=== PATIENT | male | born 1970 | race Caucasian/White ===

== ENCOUNTER 2025-02-13 13:58 | Outpatient (REF) | payer BC, SELFPAY ==
--- OUTSIDE RECORDS SUMMARY | 2025-02-10 14:00 | XMS_ITS | Encounter Summary ---
Author Organization [employer] Address [address] [facility] [address] [place] [address] Care Team Providers Care Software Project Lead Name Role Phone Unavailable Primary Care Provider Unavailabl e Reason for Visit * Reason Comments SALES TRAINING COORDINATOR AUD Encounter Details Date Type Department Care Team (Late st Contact Info) Description 02/10/2025 2:00 PM EDT Office Visit [facility] MED & PEDS [address] [place] [address] Michele Yang MD [address] [place] [address] Alcohol use disorder (Primary Dx); Tobacco dependence Social History Tobacco Use Types Packs/Day Years Used Date Smoking Tobacco: Every Day Cigarettes Smokeless Tobacco: Current Alcohol Use Standard Drinks/Week Comments Yes 0 (1 standard drink = 0.6 oz pur e alcohol) Sex and Gender Information Value Date Recorded Sex Assigned at Male 03/28/2022 10:38 AM EDT Legal Sex Male 10:38 AM EDT Gender Identity Male 03/28/2022 10:38 AM EDT Sexual Orientation Straight 03/28/2022 10 :38 AM EDT documented as of this encounter Last Filed Vital Signs Vital Sign Reading Time Taken Comments Blood Pressure 156/97 02/10/2025 2:41 PM EDT Pulse 72 02/10/2025 2:41 PM EDT Temperature - - Respiratory Rate 12 02/10/2025 2:41 PM EDT Oxygen Saturation - - Inhaled Oxygen Concentration - - Weight 83.9 kg (185 lb) 02/10/2025 2:41 PM EDT Height 188 cm (6' 2 ) 02/10/2025 2:41 PM EDT Body Mass Index 23.75 02/10/2025 2:41 PM EDT documented in this encounter Progress Notes * Michele Yang MD - 02/10/2025 2:00 PM EDT PHYSICIAN AUD INTAKE 02/10/2025 UTOX: NEG FOR ALL SUBSTANCES AUD DSM-5 Score: 2 (mild) Subjective History was provided by the patient and partner (Yovana). A portion of the visit was done alone with patient. Don Whitfield is a 54 y.o. male who presents for evaluation of alcohol and tobacco use disorder. Interested in MAT for his AUD. Previously followed at [facility] primary care practice in [place]. States his last PCP visit was 3 years ago. Underlying HTN on Lisinopril (previous practice kept refilling his medication). This is his first time seeking care for AUD. Never had inpatient detox or residential rehab. Never tried to quit at home. He was at a CD physical 3 weeks ago and found to have hematuria and proteinuria on POC UA. He decided it's time to improve his health. Has been doing commercial driving and operating machinery for 30 years. Never worked under the influence of alcohol. Never had DUI. No pending legal issues. When he has to travel for work for extended time, he can stay off alcohol (up to 2 weeks). Recently went on a vacation with his partner. Admits to drinking a lot during this trip. [place] he did not really enjoy his vacation, thus wants to change things. First drink was at age 16; increased alcohol use at age 39 (in a setting of tumultuous relationshipwith his ex-partner). Current partner is very supportive. Typically drinks about 1 pint of bourbon daily. No difficulty waking up the next morning. States it has helped him fall asleep. He feels he gets REM sleep with continuous sleep and vivid dreams. Drinking water and eating foods with his alcohol consumption (mostly at home after dinner). Denies any other substance use (denies heroin, cocaine, THC, or other drugs). Currently smokes cigarettes 1.5 PPD. Previously tried Nicotine gums, but not successful due to dental issues. Interested in patches. Currently lives with his partner and daughter (16). Denies any other concerns at this time. Has an upcoming new PCP appointment at [facility] on 02/13/2025. Objective Vitals: 02/10/25 1441 BP: (!) 156/97 BP Location: Left arm Patient Position: Sitting BP Cuff Size: Adult Pulse: 72 Resp: 12 Weight: 185 lb (83.9 kg) Height: 6' 2 (1.88 m) Physical Exam Constitutional: General: He is not in acute distress. Appearance: Normal appearance. He is not ill-appearing, toxic-appearing or diaphoretic. HENT: Right Ear: External ear normal. Left Ear: External ear normal. Eyes: Extraocular Movements: Extraocular movements intact. Conjunctiva/sclera: Conjunctivae normal. Comments: Anicteric Pulmonary: Effort: Pulmonary effort is normal. Abdominal: General: Abdomen is flat. There is no distension. Musculoskeletal: Cervical back: Neck supple. Skin: General: Skin is warm and dry. Coloration: Skin is not jaundiced. Neurological: General: No focal deficit present. Mental Status: He is alert and oriented to person, place, and time. Psychiatric: Mood and Affect: Mood normal. Behavior: Behavior normal. Office Visit on 02/10/2025 Component Date Value Ref Range Status THC 02/10/2025 Negative Negative Final Cocaine Screen, Urine 02/10/2025 Negative Negative Final Opiate Screen, Urine 02/10/2025 Negative Negative Final Methamphetamine Screen Urine 02/10/2025 Negative Negative Final Amphetamine Screen, Urine 02/10/2025 Negative Negative Final Benzodiazepines Screen, Urine 02/10/2025 Negative Negative Final Barbiturate Screen, Urine 02/10/2025 Negative Negative Final Methadone Screen, Urine 02/10/2025 Negative Negative Final Buprenophine Screen, Urine 02/10/2025 Negative Negative Final TCA, Urine 02/10/2025 Negative Negative Final MDMA Urine 02/10/2025 Negative Negative ng/mL Final Oxycodone Screen, Urine 02/10/2025 Negative Negative Final Phencyclidine (PCP), Urine 02/10/2025 Negative Negative Final Fentanyl, Urine 02/10/2025 Negative Negative Final Don was seen today for nps aud . Diagnoses and all orders for this visit: Alcohol use disorder (Primary) - naltrexone (Depade) 50 MG tablet; Take 1 tablet (50 mg) by mouth Once per day. Start at 1/2 tab (=25mg) PO daily for 4 days, then increased to 1 tab daily - Hepatic Function Panel; Future - Hepatitis C Antibody with Reflex to HCV, RNA, Quantitative, Real-Time PCR; Future - HIV-1/2 Antigen and Antibodies, Fourth Generation, with Reflexes; Future - Syphilis Screen; Future - T-SPOT??.TB; Future - CBC auto differential; Future - POCT STEPHANIE-14 Urine Drug Screen Tobacco dependence - nicotine (Nicoderm, Step 1) 21 MG/24HR patch; Place 1 patch on the skin 1 (one) time each day at the same time. Patient presents for an AUD Intake Motivated to stop/decrease alcohol use for a longer term Discussed various pharmacologic and behavioral treatment options Informed about group meetings First time seeking care for AUD Interested in trying PO Naltrexone UTOX today negative for all substances Also interested in Nicotine substitute (patches) for tobacco use Encouraged cessation Potential adverse effects of the medications reviewed Will check LFT, CBC, T-Spot, and STI screening Follow up in 2 weeks by Tele-Visit Encouraged services (individual therapy, group meetings, and AA support) Discussed about the risks of alcohol withdrawal in a home setting, including DT, seizure and Gradual taper of alcohol recommended Also advised to monitor BP at home (has a home machine); informed BP readings can fluctuate betweenthe active stage of drinking and withdrawal stage Has an upcoming new PCP appointment scheduled this week Indications for ER and inpatient detox reviewed Advised to contact the clinic with any worsening symptoms documented in this encounter Plan of Treatment Upcoming Encounters Date Type Department Care Team (Late st Contact Info) Description 02/24/2025 3:00 PM EDT Telemedicine [facility] MED & PEDS [address] [place] [address] Michele Yang MD [address] [place] [address] Scheduled Orders Name Type Priority Associated Diagnoses Orde r Schedule Hepatic Function Panel Lab Routine Alcohol use disorder Expected: 02/10/2025 (Approximate), Expires: 02/10/2026 Hepatitis C Antibody with Reflex to HCV, RNA, Quantitative, Real-Time PCR Lab Routine Alcohol use disorder Expected: 02/10/2025 (Approximate), Expires: 02/10/2026 HIV-1/2 Antigen and Antibodies, Fourth Generation, with Reflexes Lab Routine Alcohol use disorder Expected: 02/10/2025 (Approximate), Expires: 02/10/2026 Syphilis Screen Lab Routine Alcohol use disorder Expected: 02/10/2025 (Approximate), Expires: 02/10/2026 T-SPOT .TB Lab Routine Alcohol use disorder Expected: 02/10/2025 (Approximate), Expires: 02/10/2026 CBC auto differential Lab Routine Alcohol use disorder Expected: 02/10/2025 (Approximate), Expires: 02/10/2026 documented as of this encounter Procedures Procedure Name Priority Date/Time Associated Diagnosis Comments POCT STEPHANIE-14 URINE DRUG SCREEN Routine 02/10/2025 2:39 PM EDT Alcohol use disorder documented in this encounter Results * POCT STEPHANIE-14 Urine Drug Screen (02/10/2025 2:39 PM EDT) THC Negative Negative Cocaine Screen, Urine Negative Negative Opiate Screen, Urine Negative Negative Methamphetamine Screen Urine Negative Negative Amphetamine Screen, Urine Negative Negative Benzodiazepines Screen, Urine Negative Negative Barbiturate Screen, Urine Negative Negative Methadone Screen, Urine Negative Negative Buprenophine Screen, Urine Negative Negative TCA, Urine Negative Negative MDMA Urine Negative Negative ng/mL Oxycodone Screen, Urine Negative Negative Phencyclidine (PCP), Urine Negative Negative Fentanyl, Urine Negative Negative Urine Urine specimen obtained by clean catch procedure / Unknown 02/10/2025 2:39 PM EDT Michele Yang MD POINT OF CARE TEST ENTER/EDIT OR DERABLES Final Result documented in this encounter Visit Diagnoses Diagnosis Alcohol use disorder- Primary Tobacco dependence Tobacco use disorder documented in this encounter
--- OUTSIDE RECORDS SUMMARY | 2025-02-10 15:00 | XMS_ITS | Encounter Summary ---
Author Organization [employer] Address [address] [facility] 7 [place] [address] Care Team Providers Care Life Underwriter Name Role Phone Unavailable Primary Care Provider Unavailabl e Reason for Visit * Reason Comments Dentures Impressions Brittany TRAN Encounter Details Date Type Department Care Team ([facility] st Contact Info) Description 02/10/2025 3:00 PM EDT Office Visit [facility] ADULT DENTAL [address] [place] [address] Kwasi Hi DMD [address] [place] [address] Partial edentulism, unspecified edentulism class (Primary Dx) Social History Tobacco Use Types Packs/Day Years [...] AM EDT documented as of this encounter Progress Notes * Kwasi Hi DMD - 02/10/2025 3:00 PM EDT Patient ID: Don Whitfield is a 54 y.o. male. Time Out: Timeout Date: 02/10/25, Timeout Time: 1511 Location: [facility] Tooth: Maxilla and Mandible Procedure: Dentures Verified the above with patient, service center assistant, and provider. Confirmed via patient's chart, intraorally and by radiographs. Primary Care Md: not applicable Chief Complaint Patient presents with Dentures Impressions Brittany TRAN Medical Hx: Vitals: There were no vitals taken for this visit. Medications, Med Hx reviewed with patient and updated in chart. Consent Obtained: The risks, benefits, indications, potential complications, and alternatives were explained to the patient and informed consent was obtained with good understanding. Treatment Provided: Dental procedures in this visit [id number] - DENTURE IMPRESSION (Completed) Service provider: Kwasi Hi DMD Billing provider: Kwasi Hi DMD Note delayed healing on #9 extraction site - pt states he has been smoking. Reviewed connection between smoking and gingival health. Also note moderate plaque accumulation at gingival margins Irrigated socket with peridex and instructed pt to keep area clean Area has healed enough to proceed with impressions today Impression taken with Alginate of Maxilla and Mandible Case sent to lab to fabricate record base and wax rims. Lab used: [facility] Lab Due Date: 02/18 Patient discharged alert, oriented, and in stable condition. NV: Bite reg Mental Health Nurse Practitioner: Brittany Santamaria Dentist: Kwasi Hi DMD documented in this encounter Miscellaneous Notes * Addendum Note - Kwasi Hi DMD - 02/10/2025 3:00 PM EDTAddended by: KWASI HI on: 02/11/2025 04:34 PM Modules accepted: Orders documented in this encounter Plan of Treatment Upcoming Encounters Date Type Department Care Team (Late st Contact Info) Description 02/24/2025 3:00 PM EDT Telemedicine [facility] MED & PEDS [address] [place] [address] Michele Yang MD [address] [place] [address] [phone] Scheduled Orders Name Type Priority Associated Diagnoses Orde r Schedule DENTAL LAB DENTURES AND PARTIALS Dental Routine Ordered: 025 documented as of this encounter Procedures Procedure Name Priority Date/Time Associated Diagnosis Comments DENTURE IMPRESSION Routine 02/10/2025 3:00 PM EDT Partial edentulism, unspecified edentulism class documented in this encounter Visit Diagnoses Diagnosis Partial edentulism, unspecified edentulism class- Primary documented in this encounter
--- OUTSIDE RECORDS SUMMARY | 2025-02-13 13:00 | XMS_ITS | Encounter Summary ---
Author Organization [employer] Address [address] [place] [address] 7 [place] [address] Care Team Providers Care Structural Steel Painter Name Role Phone Unavailable Primary Care Provider Unavailabl e Reason for Referral * Consultation (Routine) - Authorized Specialty Diagnoses / Procedures Referred By Vy malik Referred To Contact Optometry Diagnoses Adult wellness visit Any Diego FNP [address] [place] [address] Phone: tel: fax: Referral ID Status Reason Start Date Expiration Date Visits Requested Visits Authorized [id number] Authorized Specialty Services Required 02/13/2025 02/13/2026 1 1 * Consultation (Routine) - Pending Review Specialty Diagnoses / Procedures Referred By Vy malik Referred To Contact Gastroenterology Diagnoses Adult wellness visit Any Diego FNP [address] [place] [address] Phone: tel: fax: Referral ID Status Reason Start Date Expiration Date Visits Requested Visits Authorized [id number] Pending Review Specialty Services Required 02/13/2025 02/13/2026 1 1 * Consultation (Routine) - Pending Review Specialty Diagnoses / Procedures Referred By Vy malik Referred To Contact Nephrology Diagnoses Adult wellness visit Any Diego FNP [address] [place] [address] Phone: tel: fax: Referral ID Status Reason Start Date Expiration Date Visits Requested Visits Authorized [id number] Pending Review Specialty Services Required 02/13/2025 02/13/2026 1 1 Encounter Details Date Type Department Care Team (Late st Contact Info) Description 02/13/2025 1:00 PM EDT Office Visit [facility] MED[facility] [address] [place] [address] Any Diego FNP [address] [place] [address] Adult wellness visit (Primary Dx); Encounter for immunization Social History Tobacco Use Types Packs/Day Years Used Date Smoking Tobacco: Every Day Cigarettes Passive Smoke Exposure: Current Smokeless Tobacco: Current Tobacco Cessation:Ready to Q uit: Not Asked; Counseling Given: Not Answered Alcohol Use Standard Drinks/Week Comments Yes 0 (1 standard drink = 0.6 oz pur e alcohol) [place] 1 pint daily Alcohol Answer Date Recorded How often do you have a drink containing alcohol ? 4 02/13/2025 How many drinks containing a lcohol do you have on a typical day when you are drinking? 3 02/13/2025 How often do you have six or more drinks on one occasion? 4 02/13/2025 Depression Answer Date Recorded Patient Health Questionnaire-9 Score 0 02/13/2025 Patient Health Questionnaire-9 Score 0 02/13/2025 Last PHQ-9: Questionnaire Data Not on file 0 02/13/2025 Housing Stability Answer Date Recorded What is your housing situation today? I have harry manzo 02/13/[address] you li ve. Do you have problems with any of the following? None of the above 02/13/2025 Food Insecurity Answer Date Recorded Within the past 12 months, y ou worried that your food would run out before you got money to buy more: Never True 02/13/2025 Within the past 12 months,th e food you bought just didn't last and you didn't have enough money to get more: Never True Transportation Answer Date Recorded In the past 12 months, has l ack of transportation kept you from medical appts, meetings, work or from getting things needed for daily living? No 02/13/2025 Utilities Answer Date Recorded In the past 12 months, has t he electric, gas, oil or water company threatened to shut off services in your home? No 02/13/2025 Depression Answer Date Recorded Patient Health Questionnaire-2 Score 0 02/13/2025 Internet Access Answer Date Recorded Internet Access Q1 Yes 02/13/2025 Internet Access Q2 Not on file 02/13/2025 Sex and Gender Information Value Date Recorded Sex Assigned at Male 03/28/2022 10:38 AM EDT Legal Sex Male 10:38 AM EDT Gender Identity Male 03/28/2022 10:38 AM EDT Sexual Orientation Straight 03/28/2022 10 :38 AM EDT documented as of this encounter Last Filed Vital Signs Vital Sign Reading Time Taken Comments Blood Pressure 148/94 02/13/2025 1:03 PM EDT Pulse 85 02/13/2025 1:03 PM EDT Temperature 36.8 C (98.3 F) 02/13/2025 1:03 PM EDT Respiratory Rate 14 02/13/2025 1:03 PM EDT Oxygen Saturation 98% 02/13/2025 1:03 PM EDT Inhaled Oxygen Concentration - - Weight 79.4 kg (175 lb 2 oz) 02/13/2025 1:03 PM EDT Height 185.5 cm (6' 1.03 ) 02/13/2025 1:03 PM ED T Body Mass Index 23.09 02/13/2025 1:03 PM EDT documented in this encounter Functional Status * Over the past 2 weeks, how often have you been bothered by any of the following problems? Question Answer Date of Assessment Author Patient Health Questionnaire -2 Score 0 02/13/2025 1:06 PM EDT Ericka Nguyen MA * Little interest or pleasure in doing things Answer Date of Assessment Author Not at all 02/13/2025 1:06 PM EDT Ericka Graves MA * Feeling down, depressed, or hopeless Answer Date of Assessment Author Not at all 02/13/2025 1:06 PM EDT Ericka Graves MA * Trouble falling or staying asleep, or sleeping too much Answer Date of Assessment Author Not at all 02/13/2025 1:06 PM EDT Ericka Graves MA * Feeling tired or having little energy Answer Date of Assessment Author Not at all 02/13/2025 1:06 PM EDT Ericka Graves MA * Poor appetite or overeating Answer Date of Assessment Author Not at all 02/13/2025 1:06 PM EDT Ericka Graves MA * Feeling bad about yourself - or that you are a failure or have let yourself or your family down Answer Date of Assessment Author Not at all 02/13/2025 1:06 PM EDT Ericka Graves MA * Trouble concentrating on things, such as reading the newspaper or watching television Answer Date of Assessment Author Not at all 02/13/2025 1:06 PM EDT Ericka Graves MA * Moving or speaking so slowly that other people could have noticed? Or the opposite - being so fidgety or restless that you have been moving around a lot more than usual. Answer Date of Assessment Author Not at all 02/13/2025 1:06 PM EDT Ericka Graves MA * Thoughts that you would be better off or hurting yourself in some way Answer Date of Assessment Author Not at all 02/13/2025 1:06 PM EDT Ericka Graves MA * Patient Health Questionnaire-9 Score Answer Date of Assessment Author 0 02/13/2025 1:06 PM EDT Ericka Graves MA * Over the last 2 weeks, how often have you been bothered by any of the following problems? Question Answer Date of Assessment Author Feeling nervous, anxious, or on edge 1 02/13/2025 1:06 PM EDT Ericka Nguyen MA Not being able to stop or control worrying 0 02/13/2025 1:06 PM EDT Ericka Nguyen MA Worrying too much about different things 0 02/13/2025 1:06 PM EDT Ericka Nguyen MA Trouble relaxing 0 02/13/2025 1:06 PM EDT R eyes Ericka Hudson MA Being so restless that it is hard to sit still 0 02/13/2025 1:06 PM EDT Ericka Nguyen MA Becoming easily annoyed or irritable 0 02/13/2025 1:06 PM EDT Ericka Nguyen MA Feeling afraid as if somethi ng awful might happen 1 02/13/2025 1:06 PM EDT Ericka Nguyen MA MISTI-7 Total Score 2 02/13/2025 1:06 PM EDT Ericka Nguyen MA documented as of this encounter Plan of Treatment Upcoming Encounters Date Type Department Care Team (Late st Contact Info) Description 02/24/2025 3:00 PM EDT Telemedicine [facility] MED & PEDS [address] [place] [address] Michele Yang MD [address] [place] [address] Scheduled Orders Name Type Priority Associated Diagnoses Orde r Schedule Comprehensive Metabolic Panel Lab Routine Adult wellness visit Expected: 02/13/2025 (Approximate), Expires: 02/12/2026 Hepatitis B Core Antibody, Total Lab Routine Adult wellness visit Expected: 02/13/2025 (Approximate), Expires: 02/12/2026 TSH Lab Routine Adult wellness visit Expected: 02/13/2025 (Approximate), Expires: 02/12/2026 Hepatitis B Surface Antibody, Qualitative Lab Routine Adult wellness visit Expected: 02/13/2025 (Approximate), Expires: 02/12/2026 Hepatitis B surface antigen, EIA Lab Routine Adult wellness visit Expected: 02/13/2025 (Approximate), Expires: 02/12/2026 Hepatitis C Antibody with Reflex to HCV, RNA, Quantitative, Real-Time PCR Lab Routine Adult wellness visit Expected: 02/13/2025, Expires: 02/12/2026 CBC auto differential Lab Routine Adult wellness visit Expected: 02/13/2025 (Approximate), Expires: 02/12/2026 HIV-1/2 Antigen and Antibodies, Fourth Generation, with Reflexes Lab Routine Adult wellness visit Expected: 02/13/2025 (Approximate), Expires: 02/12/2026 Lipid Panel, Standard Lab Routine Adult wellness visit Expected: 02/13/2025 (Approximate), Expires: 02/12/2026 Vitamin D, 25-Hydroxy, Total, Immunoassay Lab Routine Adult wellness visit Expected: 02/13/2025 (Approximate), Expires: 02/12/2026 Hemoglobin A1c Lab Routine Adult wellness visit Expected: 02/13/2025 (Approximate), Expires: 02/12/2026 Chlamydia/N. Gonorrhoeae, PCR, Urine Lab Routine Adult wellness visit Ordered: 02/13/2025 Urine Culture Routine Microbiology Routine Adult wellness visit Ordered: 02/13/2025 PSA,Total Lab Routine Adult wellness visit Expected: 02/13/2025, Expires: 02/13/2026 Scheduled Referrals Name Type Priority Associated Diagnoses Order Schedule Referral to Nephrology Outpatient Referral Routine Adult wellness visit Expected: 02/13/2025 (Approximate), Expires: 02/12/2026 Referral to Gastroenterology Outpatient Referral Routine Adult wellness visit Expected: 02/13/2025 (Approximate), Expires: 02/12/2026 Referral to Optometry, Internal Outpatient Referral Routine Adult wellness visit Expected: 02/13/2025 (Approximate), Expires: 02/12/2026 documented as of this encounter Procedures Procedure Name Priority Date/Time Associated Diagnosis Comments POCT URINALYSIS DIPSTICK Routine 02/13/2025 1:56 PM EDT Adult wellness visit documented in this encounter Results * POCT Urinalysis (02/13/2025 1:56 PM EDT) Color, UA Dark Lucina Clarity, UA Turbid Glucose, UA Negative Bilirubin, UA Trace Comment:Small Ketones, UA Negative Spec Grav, UA 1.030 Blood, UA Negative Negative, None Detected pH, UA 6.0 Protein, UA Trace Comment:30 mg/dL Urobilinogen, UA 0.2 Leukocytes, UA Negative Negative, Rare, Trace Nitrite, UA Negative Negative, None Detected Appearance, UA Turbid QC Media Lot # [id number] Lot# Expiration Date [id number] Urine 02/13/2025 1:56 PM EDT Any Diego FLAP MAKER POINT OF CARE TEST ENTER/EDIT ORDERABLES Final Result documented in this encounter Visit Diagnoses Diagnosis Adult wellness visit- Primary Encounter for immunization documented in this encounter Additional Health Concerns Assessment Noted Time PHQ-9 Depression Total Score: 0 02/14/20 25 1:06 PM EDT documented as of this encounter
--- OUTSIDE RECORDS SUMMARY | 2025-02-13 16:00 | XMS_ITS | Encounter Summary ---
Author Organization [employer] Address [address] [facility] 7t [place] [address] Care Team Providers Care Manager Drug Safety Name Role Phone Unavailable Primary Care Provider Unavailabl e Reason for Visit * Reason Onset Date Comments Med Refill 09/11/2024 Encounter Details Date Type Department Care Team (Late st Contact Info) Description 09/11/2024 Refill [facility] [address] [place] [address] Rubens Macario DMD [address] [place] [address] Social History Tobacco Use Types Packs/Day Years [...] AM EDT documented as of this encounter Miscellaneous Notes * Telephone Encounter - Rubens Macario DMD - 09/11/2024 5:20 PM EDT Approving, but needs appt for additional refills. documented in this encounter Plan of Treatment Upcoming Encounters Date Type Department Care Team (Late st Contact Info) Description 02/24/2025 3:00 PM EDT Telemedicine [facility] MED & [facility]ED[facility] [address] [place] [address] Michele Yang MD [address] [place] [address] documented as of this encounter Visit Diagnoses Not on filedocumented in this encounter
--- OUTSIDE RECORDS SUMMARY | 2025-02-13 16:00 | XMS_ITS | Encounter Summary ---
Author Organization [email or web address] Address [address] [facility] [address] 7[address] [place] [address] Care Team Providers Care Basic Sciences Professor Name Role Phone Unavailable Primary Care Provider Unavailabl e Encounter Details Date Type Department Care Team (Latest Contact Info) Description 02/13/2025 Travel Social History Tobacco Use Types Packs/Day Years Used Date Smoking Tobacco: Every Day Cigarettes Passive Smoke Exposure: Current Smokeless Tobacco: Current Alcohol Use Standard Drinks/Week Comments Yes 0 (1 standard drink = 0.6 oz pur e alcohol) [place]orn 1 pint daily Alcohol Answer Date Recorded [...] AM EDT documented as of this encounter Functional Status * Over the [...] Trouble relaxing 0 02/13/2025 1:06 PM EDT Ericka Schmitz [place] Being so restless that it is [...] 3:00 PM EDT Telemedicine [facility] [address] [place] [address] Michele Yang MD [address] [place] [address] documented as of this encounter Visit Diagnoses Not on filedocumented in this encounter Additional Health Concerns Assessment Noted Time PHQ-9 Depression Total Score: 0 02/14/20 25 1:06 PM EDT documented as of this encounter
--- OUTSIDE RECORDS SUMMARY | 2025-02-13 16:00 | XMS_ITS | Encounter Summary ---
Author Organization [employer] Address [address] [facility] 7t [place] [address] Care Team Providers Care Chiseler Head Name Role Phone Unavailable Primary Care Provider Unavailabl e Encounter Details Date Type Department Care Team (Latest Contact Info) Description 02/10/2025 Travel Social History Tobacco Use Types Packs/Day [...] AM EDT documented as of this encounter Plan of Treatment Upcoming Encounters Date Type Department Care Team (Late st Contact Info) Description 02/24/2025 3:00 PM EDT Telemedicine [facility] [address] [place] [address] Michele Yang MD [address] [place] [address] documented as of this encounter Visit Diagnoses Not on filedocumented in this encounter
--- OUTSIDE RECORDS SUMMARY | 2025-02-13 16:01 | XMS_ITS | Clinical Summary ---
Author Organization [employer] Address [address] [facility] [address] [place] [address] Care Team Providers Care Branch Operations Coordinator Name Role Phone Unavailable Primary Care Provider Unavailabl e Allergies Active Allergy Reactions Criticality Noted Date Comments Cinnamon 01/25/2023 Penicillin G 03/17/2023 Penicillin V 01/25/2023 Medications amLODIPine (Norvasc) 10 MG tablet Take 1 tablet by mouth. 3 Active lisinopril 20 MG tablet Take 20 mg by mouth in the morning. 2 Active Sod Fluoride-Potassi um Nitrate 1.1-5 % pasteIndications :Dental caries [place] teeth for 2 minutes, morning and night. Spit, do not rinse. Do not eat or drink anything for 30 minutes following brushing. 112 g 3 3 Active Additional Information Patient not taking.Reported on 02/10/2025 acetaminophen (Tylenol) 500 MG tabletIndication s:Severe dental caries,History of tooth extraction, unspecified edentulism class Take 1 tablet (500 mg) by mouth every 6 (six) hours if needed for mild pain for up to 20 doses. 20 tablet 4 Active chlorhexidine (Peridex) 0.12 % solution Swish 15 mL morning and night for 1 minute. Spit, do not swallow. Do not eat or drink for 30 minutes following use. 473 mL 5 Active nicotine (Nicoderm, Step 1) 21 MG/24HR patchIndications :Nicotine Dependence Place 1 patch on the skin 1 (one) time each day at the same time. 28 patch 1 5 04/07/20 25 Active naltrexone (Depade) 50 MG tabletIndication s:Alcohol use disorder Take 1 tablet (50 mg) by mouth Once per day. 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 Probability of alcoholic liver disease is 100% Tobacco abuse 01/02/2023 Essential hypertension 06/15/2007 Encounters Date Type Department Care Team Description 02/13/2025 1:00 PM EDT Office Visit [facility] MED[facility] [address] [place] [address] Any Diego FNP Adult wellness visit (Primary Dx); Encounter for immunization 02/13/2025 Travel 02/10/2025 3:00 PM EDT Office Visit [facility] ADULT D[facility] [address] [place] [address] Rubens Macario DMD Partial edentulism, unspecified edentulism class (Primary Dx) 02/10/2025 2:00 PM EDT Office Visit [facility] [address] [place] [address] Michele Yang MD Alcohol use disorder (Primary Dx); Tobacco dependence 02/10/2025 Travel 02/06/2025 Patient Outreach [facility] [address] [place] [address] Any Diego FNP Pre-visit Planning (SDOH unable to reach [facility]) 02/06/2025 Travel 02/04/2025 Travel 01/16/2025 1:00 PM EDT Office Visit [facility] ADULT D[facility] [address] [place] [address] Ruebns Macario DMD Severe dental caries (Primary Dx); Dental caries; Gingivitis 01/09/2025 Travel from Last 3 Months Family History Medical History Relation Name Comments Diabetes Father Pancreatic cancer Father Breast cancer Mother Hypertension Mother Obesity Mother Relation Name Status Comments Father Mother Social History Tobacco Use Types Packs/Day Years [...] Orientation Straight 03/28/2022 10 :38 AM EDT Last Filed Vital Signs Vital Sign Reading [...] Mass Index 23.09 02/13/2025 1:03 PM EDT Plan of Treatment Upcoming Encounters Date Type Department Care Team (Late st Contact Info) Description 02/24/2025 3:00 PM EDT Telemedicine [facility] [address] [place] [address] Michele Yang MD [address] [place] [address] Health Maintenance Due Date Last Done Comments CT Colonography 1971 Colonoscopy 1971 Colorectal Cancer Screening 1971 FIT DNA/Cologuard 1971 FIT 1971 FOBT 1971 HIV Screening 1971 Lipid Panel 1971 Sigmoidoscopy 1971 Hepatitis C Screening 08/09/1989 Hepatitis A Vaccines (1 of 2 - Risk 2-dose series) 08/09/1990 Hepatitis B Vaccines (1 of 3 - 19+ 3-dose series) 08/09/1990 COVID-19 Vaccine (2024-2 6 season) 2025 05/19/2021, 10/17/2020, 09/19/2020 Influenza Vaccine (#1) 2025 Dental Oral Exam 04/18/2025 10/15/2024, 03/17/2023 Dental Prophylaxis 07/20/2025 01/16/2025 Dental X-Ray: Bitewings 10/16/2025 10/16/19 25, 03/17/2023 Disability Screening 02/06/2026 02/06/2025 Alcohol/Substance Use Screening 02/13/2026 02/13/2025 DTaP/Tdap/Td Vaccines (1 - Tdap) 02/13/2026 06/12/2005 Postponed from 06/13 (Patient Refused) Depression Screening 02/13/2026 02/13/2025, 02/13/2025 Pneumococcal Vaccine: 50+ Years (1 of 2 - PCV) 02/13/2026 Postponed from 07/27 (Patient Refused) SDOH Screening 02/13/2026 02/13/2025 Tobacco Screening 02/13/2026 02/13/2025 Zoster Vaccines (1 of 2) 02/13/2026 Pos tponed from 08/09/2021 (Patient Refused) Dental X-Ray: Full Mouth 03/18/2026 03/17/2023 RSV Patients and Patients Aged 60 years or older (1 - 1-dose 75+ series) 08/09/2046 HIB Vaccines Aged Out No longer eligi ble based on patient's age to complete this topic HPV Vaccines Aged Out No longer eligi ble based on patient's age to complete this topic IPV Vaccines Aged Out No longer eligi ble based on patient's age to complete this topic Meningococcal B Vaccine Aged Out No l onger eligible based on patient's age to complete this topic Meningococcal Vaccine Aged Out No sai james eligible based on patient's age to complete this topic RSV under 20 months Aged Out No longe r eligible based on patient's age to complete this topic Rotavirus Vaccines Aged Out No longer eligible based on patient's age to complete this topic Procedures Procedure Name Priority Date/Time Associated Diagnosis Comments POCT URINALYSIS DIPSTICK Routine 02/13/2025 1:56 PM EDT Adult wellness visit DENTURE IMPRESSION Routine 02/10/2025 3: 00 PM EDT Partial edentulism, unspecified edentulism class POCT STEPHANIE-14 URINE DRUG SCREEN Routine 02/10/2025 2:39 PM EDT Alcohol use disorder PROPHYLAXIS - ADULT Routine 01/16/2025 1 :00 PM EDT Severe dental caries Dental caries Gingivitis 11 L(V) RESIN-BASED COMPOSITE - 1 SURF, ANTERIOR Routine 01/16/2025 1:00 PM EDT Severe dental caries Dental caries Gingivitis 24 MIFL RESIN-BASED COMPOSITE - 4 OR MORE SURFACES (ANTERIOR) Routine 01/16/2025 1:00 PM EDT Severe dental caries Dental caries Gingivitis 14 MO RESIN-BASED COMPOSITE - 2 SURF, POSTERIOR Routine 01/16/2025 1:00 PM EDT Severe dental caries Dental caries Gingivitis 9 EXTRACTION, ERUPTED TOOTH OR EXPOSED ROOT (ELEVATION/FORCEPS REMOVAL) Routine 01/16/2025 1:00 PM EDT Severe dental caries Dental caries Gingivitis BITEWINGS - 4 RADIOGRAPHIC IMAGES Routine 10/15/2024 3:00 PM EDT Dental caries Partial edentulism, unspecified edentulism class Tooth fracture with loss of restorative material PERIODIC ORAL EVALUATION - ESTABLISHED PATIENT Routine 10/15/2024 3:00 PM EDT Dental caries Partial edentulism, unspecified edentulism class Tooth fracture with loss of restorative material INTRAORAL - COMPLETE SERIES OF RADIOGRAPHIC IMAGES Routine 03/17/2023 1:00 PM EDT Dental caries Periodontal disease from Last 3 Months or Most Recently Relevant to Health Maintenance Results * POCT Urinalysis (02/13/2025 1:56 PM EDT) [facility] Signature Color, UA Dark Lucina Clarity, UA Turbid Glucose, UA Negative Bilirubin, UA Trace Comment:Small Ketones, UA Negative Spec Grav, UA 1.030 Blood, UA Negative Negative, None Detected pH, UA 6.0 Protein, UA Trace Comment:30 mg/dL Urobilinogen, UA 0.2 Leukocytes, UA Negative Negative, Rare, Trace Nitrite, UA Negative Negative, None Detected Appearance, UA Turbid QC Media Lot # [id number] Lot# Expiration Date [id number] Urine 02/13/2025 1:56 PM EDT Any Diego DRESS FINISHER POINT OF CARE TEST ENTER/EDIT ORDERABLES Final Result * POCT STEPHANIE-14 Urine Drug Screen (02/10/2025 [...] CARE TEST ENTER/EDIT OR DERABLES Final Result from Last 3 Months Insurance [employer] PPO DENTAL - [facility] PPO
[2025-02-13 16:10] LABS: MANUAL DIFF FLAG NO
[2025-02-13 16:21] LABS: Hematocrit 44.3 % (42.0-52.0); Hemoglobin 16.3 g/dl (14.0-18.0); Imm Gran Abs Auto 0.06 X10*3/uL (0.00-0.03); Imm Gran Pct Auto 0.5 % (0.0-0.4); Lymphocytes Absolute Auto 3.9 X10*3/uL (1.2-4.9); Mean Corpuscular HGB Conc 36.8 g/dl (31.0-36.0); Mean Corpuscular Hemoglobin 37.2 pg (27.0-33.0); Mean Corpuscular Volume 101.1 fL (80.0-98.0); NRBC Abs Auto 0.000 X10*3/uL (0.0-0.012); NRBC Pct Auto 0.0 /100WBC (0.0-0.2); Platelet Count 183 X10*3/uL (160-400); Red Blood Count 4.38 X10*6/uL (4.60-5.80); White Blood Count 12.3 X10*3/uL (4.8-10.8)
[2025-02-13 17:17] LABS: Alanine Aminotransferase 53 U/L (0-40); Albumin Level 4.7 g/dL (3.5-5.0); Alkaline Phosphatase 96 U/L (39-117); Aspartate Amino Transferase 91 U/L (5-37); Total Protein 8.4 g/dL (6.5-8.0)
[2025-02-13 17:36] LABS: Prostate Specific Antigen 1.14 ng/mL (<0.05-4.0)
[2025-02-14 03:18] LABS: CT PCR Urine NOT DETECTED (Not Detect.); NG PCR Urine NOT DETECTED (Not Detect.)
[2025-02-14 08:41] LABS: HIV Num 1 0.05 S/CO (0.00-0.99); ~HepC Num1 0.42 S/CO (0.00-0.79); ~Hepatitis C Antibody Nonreactive (Nonreactive)
[2025-02-14 09:42] LABS: Syphilis Screen Nonreactive (Nonreactive)
[2025-02-18 03:08] LABS: TS Negative Control Passed; TS Panel A 0; TS Panel B 0; TS Positive Control Passed; TSpotTB Negative (Negative)
== END 2025-02-13 13:59 | disposition home or self-care (01) ==
LOC: HO.HHCL 13:58
PROVIDERS: PCP Nurse Practitioner Family; Referring Provider Family Medicine; Visit Provider Nurse Practitioner Family
DX: Z00.00 Encounter for general adult medical examination without abnormal findings (principal); Z12.5 Encounter for screening for malignant neoplasm of prostate; Z11.1 Encounter for screening for respiratory tuberculosis; Z11.4 Encounter for screening for human immunodeficiency virus [HIV]; Z11.8 Encounter for screening for other infectious and parasitic diseases; Z11.59 Encounter for screening for other viral diseases; F10.90 Alcohol use, unspecified, uncomplicated
CPT/HCPCS: 36415; 80076; 84153; 85025; 86481; 86780; 86803; 87389; 87491; 87591

== ENCOUNTER 2025-03-24 15:49 | Outpatient (AMB) | payer BC, SELFPAY ==
--- OUTSIDE RECORDS SUMMARY | 2025-03-21 15:00 | XMS_ITS | Encounter Summary ---
Author Organization [employer] Address [address] [facility] 7t [place] [address] Care Team Providers Care Embedded Software Development Engineer Name Role Phone Any Diego YEIMI Primary Care Provider [phone] Reason for Visit * Reason Comments AUD F/U Encounter Details Date Type Department Care Team ([facility] st Contact Info) Description 03/21/2025 3:00 PM EDT Office Visit [facility] MEDIC[facility] [address] [place] [address] Michele Yang MD [address] [place] [address] Alcohol use disorder (Primary Dx) Social History Tobacco Use Types Packs/Day Years Used Date Smoking Tobacco: Every Day Cigarettes Passive Smoke Exposure: Current Smokeless Tobacco: Current Alcohol Use Standard Drinks/Week Comments Yes 0 (1 standard drink = 0.6 oz pur e alcohol) 1 pint of bourbon daily Alcohol Answer Date Recorded How often [...] Sign Reading Time Taken Comments Blood Pressure 138/82 03/21/2025 4:00 PM EDT Pulse 90 03/21/2025 3:36 PM EDT Temperature 36.7 C (98.1 F) 03/21/2025 3:36 PM EDT Respiratory Rate 20 03/21/2025 3:36 PM EDT Oxygen Saturation - - Inhaled Oxygen Concentration - - Weight - - Height - - Body Mass Index - - documented in this encounter Progress Notes * Michele Yang MD - 03/21/2025 3:00 PM EDT TODAY AUD F/U 03/21/2025 Patient was recently started on Naltrexone PO 50mg daily 1 month ago for AUD. Contacted the clinic to discuss his erectile dysfunction issue starting Naltrexone. However, he also restarted Amlodipineand Lisinopril after being off for a long time. Previously reported no change in libido, but had difficulty sustaining his erection. Informed decreased libido is a known side effect of Naltrexone, but difficulty sustaining erection is less common.I suspected Amlodipine may have been the culprit. Now off Amlodipine for 2 weeks. Today, he states his libido issue is completely resolved. Tolerating Naltrexone and Lisinopril well. States he is consuming less amount of alcohol. Was previously drinking 1.5 - 2 shaker-ful of alcoholic beverage at night. Since starting the medication and recovery care, he has been consuming <1 shaker-ful (~16 oz bourbon). Feeling less drunk . Denies any intolerance issues. Was found to have elevated liver enzymes. Abdominal U/S scheduled in 03/2025. Previous HPI: AUD INTAKE 02/10/2025 UTOX: NEG FOR ALL SUBSTANCES AUD DSM-5 Score: 2 (mild) Subjective History was provided by the patient and partner (Yovana). A portion of the visit was done alone with patient. Don Whitfield is a 54 y.o. male who presents for evaluation of alcohol and tobacco use disorder. Interested in MAT for his AUD. Previously followed at [facility] primary care practice in [place]. States his last PCP visit was 3 years ago. Underlying HTN on Lisinopril (previous practice kept refilling his medication). This is his first time seeking care for AUD. Never had inpatient detox or residential rehab. Never tried to quit at home. He was at a [facility] physical 3 weeks ago and found to [...] to drinking a lot during this trip. [place] he did not really enjoy his vacation, [...] upcoming new PCP appointment at [facility] on 02/13/2025. Objective Vitals: 03/21/25 1536 03/21/25 1600 BP: 137/89 138/82 BP Location: Left arm Left arm Patient Position: Sitting Sitting BP Cuff Size: Adult Adult Pulse: 90 Resp: 20 Temp: 98.1 ??F (36.7 ??C) TempSrc: Oral Physical Exam Pulmonary: Effort: Pulmonary effort is normal. Neurological: Mental Status: He is alert. Psychiatric: Behavior: Behavior normal. Don was seen today for aud f/u . Diagnoses and all orders for this visit: Alcohol use disorder (Primary) Patient presents for an AUD F/U Motivated to stop/decrease alcohol use for a longer term Discussed various pharmacologic and behavioral treatment options Informed about group meetings First time seeking care for AUD Tolerating PO Naltrexone (started 1 month ago) Decreased quantity and frequency of alcohol use Erectile dysfunction symptoms have now resolved since discontinuing Amlodipine Today's BP borderline; will continue to monitor UTOX negative for all substances at the intake Nicotine substitute (patches) prescribed for tobacco use Encouraged cessation Potential adverse effects of the medications reviewed Has an upcoming Abdominal U/S scheduled for elevated LFT Encouraged services (individual therapy, group meetings, and AA support) Discussed about the risks of alcohol withdrawal in a home setting, including DT, seizure and Gradual taper of alcohol recommended Indications for ER and inpatient detox reviewed Advised to contact the clinic with any worsening symptoms Follow up in-person in 3 months documented in this encounter Plan of Treatment Upcoming Encounters Date Type Department Care Team (Late st Contact Info) Description 06/20/2025 3:00 PM EST Office Visit [facility] [address] [place] [address] Michele Yang MD [address] [place] [address] 07/22/2025 1:30 PM EST Office Visit [facility] [address] [place], [place] [id number] Jaci Childress, OD [address] [place] [address] documented as of this encounter Visit Diagnoses Diagnosis Alcohol use disorder- Primary documented in this encounter Additional Health Concerns Assessment Noted Time PHQ-9 Depression Total Score: 0 02/14/20 1:06 PM EDT documented as of this encounter Care Teams Embedded Software Development Engineer Relationship Specialty Start Date End Date Any Diego FNP [address] [place] [address] [phone] PCP - General Family Medicine 02/18/25 documented as of this encounter
[2025-03-24 15:58] VITALS: BP 120/82; PULSE 87; O2SAT 97; BMI 23.2
--- NOTE | 2025-03-24 15:58 | HO.NEPHOV_ITS ---
Vital Signs 03/24/25 15:58 Height 6 ft 1 in Weight 176 lb BMI 23.2 BP 120/82 Blood Pressure Location Lt brachial Position Sitting Pulse 87 Pulse Source Pulse Oximeter Pulse Oximetry (%) 97 Oxygen Delivery Method Room Air Intake Visit Reasons: ENP- DX Proteinuria lvm Neurology Manager Required: No Accompanied by: Spouse Allergies cinnamon Allergy (Unknown, Verified 03/24/25 16:00) Unknown penicillin G Allergy (Unknown, Verified 03/24/25 16:00) Unknown penicillin V Allergy (Unknown, Verified 03/24/25 16:00) Unknown Medication List - Last Reconciled 03/24/25 by Yovani Koroma MD lisinopril 20 mg PO DAILY naltrexone 50 mg PO DAILY HPI Comments Details: - The patient is a 54-year-old male presenting with proteinuria and hematuria. - Proteinuria and hematuria identified during routine testing. - No previous kidney issues reported. - Essential hypertension managed with Amlodipine and Lisinopril. - Alcohol use disorder with elevated liver enzymes due to high alcohol intake. - Significant weight loss of 46 pounds due to stress from personal issues. - Penicillin allergy causing hives post-infection resolution. Physical Exam General: Awake. Comfortable. HENT: Neck supple. Mucosa moist. Pulmonary: Lungs aeration equal. No rales. Cardiology: Heart S1-S2 heard. No gallop. Abdomen: Soft. Non tender. Bowel sounds normal. Neurologic: No involuntary movements. No myoclonus. Extremities: No edema. No rash. [facility] Medical History (Updated 03/24/25 @ 16:15 by Yovani Koroma MD) Proteinuria Hematuria, microscopic Alcohol use Tobacco use disorder Impaired fasting glucose Hypertriglyceridemia Essential hypertension Alcohol induced liver disorder Family History Mother Breast cancer Hypertension Obesity Father Diabetes Pancreatic cancer Review of Systems Const Denies fever(s) and Denies weight loss Card Denies chest pain Resp Denies cough and Denies hemoptysis GI Denies abdominal pain, Denies diarrhea and Denies nausea Musc Denies back pain Neuro Denies focal weakness Physical Exam Vital Signs: Last Vital Signs Pulse 87 03/24/25 15:58 BP 120/82 03/24/25 15:58 Pulse Ox 97 03/24/25 15:58 Oxygen Delivery Method Room Air 03/24/25 15:58 BMI result Body Mass Index 23.2 Results Reviewed Nephrology Results: Hgb, (14.0-18.0) 16.3 g/dl 02/13/25 WBC, (4.8-10.8) 12.3 X10*3/uL H 02/13/25 Plt Count, (160-400) 183 X10*3/uL 02/13/25 Assessment & Plan Assessment & Plan (1) Proteinuria: Code(s): R80.9 - Proteinuria, unspecified Category: Medical (2) Essential hypertension: Code(s): I10 - Essential (primary) hypertension Category: Medical Plan 1. Proteinuria - further tests to determine proteinuria type and amount. 2. Hematuria - Evaluate cause of hematuria. Urine studies ordered Await USG in MAR 3. Essential Hypertension - Continue Lisinopril. 4. Alcohol Use Disorder - Elevated Liver Enzymes - Monitor liver function tests. Orders: Orders Vitamin D 25-OH Total Today I10 - Essential (primary) hypertension, R80.9 - Proteinuria, unspecified UA and rflx microscopic Today I10 - Essential (primary) hypertension, R80.9 - Proteinuria, unspecified Total Protein Urine Random Today I10 - Essential (primary) hypertension, R80.9 - Proteinuria, unspecified Magnesium Today I10 - Essential (primary) hypertension, R80.9 - Proteinuria, unspecified Comprehensive Met. Panel Today I10 - Essential (primary) hypertension, R80.9 - Proteinuria, unspecified Creatinine Urine Today I10 - Essential (primary) hypertension, R80.9 - Proteinuria, unspecified Hepatitis B Profile Today I10 - Essential (primary) hypertension, R80.9 - Proteinuria, unspecified Coding Level of Care Code New Pt Level 4 (08558) Diagnoses Proteinuria R80.9 Essential hypertension I10
--- OUTSIDE RECORDS SUMMARY | 2025-03-24 18:51 | XMS_ITS | Encounter Summary ---
Author Organization [employer] Address [address] [facility] [address] [place] [address] Care Team Providers Care Woodyard Operator Name Role Phone Any Diego YEIMI Primary Care Provider [phone] Encounter Details Date Type Department Care Team ([facility] st Contact Info) Description 02/14/2025 Results Follow-Up [facility] [address] [place] [id number] Michele Yang MD [address] [place] [address] Hepatic Function Panel, Hepatitis C Antibody with Reflex to HCV, RNA, Quantitative, Real-Time PCR, HIV-1/2 Antigen and Antibodies, Fourth Generation, with Reflexes, Additional followed-up results: 3 Social History Tobacco Use Types Packs/Day Years Used Date Smoking Tobacco: Every Day Cigarettes Passive Smoke Exposure: Current Smokeless Tobacco: Current Alcohol Use Standard Drinks/Week Comments Yes 0 (1 standard drink = 0.6 oz pur e alcohol) Brianna 1 pint daily Alcohol Answer Date Recorded [...] your housing situation today? I have harry sing 02/13/[address] you li [...] Description 06/20/2025 3:00 PM EST Office Visit [facility] MED[facility] [address] [place] [address] Michele Yang MD [address] [place] [address] 07/22/2025 1:30 PM EST Office Visit [facility] [address] [place] [address] Jaci Childress, OD [address] [place] [address] documented as of this encounter Visit Diagnoses Not on filedocumented in this encounter Additional Health Concerns Assessment Noted Time PHQ-9 Depression Total Score: 0 02/14/20 1:06 PM EDT documented as of this encounter Care Teams Woodyard Operator Relationship Specialty Start Date End Date Any Diego FNP [address] [place] [id number] PCP - General Family Medicine 02/18/25 documented as of this encounter
--- OUTSIDE RECORDS SUMMARY | 2025-03-24 18:51 | XMS_ITS | Encounter Summary ---
Author Organization [employer] Address [address] [facility] 7t [place] [address] Care Team Providers Care Fisher Hand Line Name Role Phone Any Diego SHIPYARD LABORER Primary Care Provider [phone] Encounter Details Date Type Department Care Team (Latest Contact Info) Description 03/20/2025 Travel Social History Tobacco Use Types Packs/Day [...] Description 06/20/2025 3:00 PM EST Office Visit [facility] MEDICINE [address] [place] [address] Michele Yang MD [address] [place] [address] 07/22/2025 1:30 PM EST Office Visit [facility] [address] [place] [address] Jaci Childress, OD [address] [place] [address] documented as of this encounter Visit Diagnoses Not on filedocumented in this encounter Additional Health Concerns Assessment Noted Time PHQ-9 Depression Total Score: 0 02/14/20 1:06 PM EDT documented as of this encounter Care Teams Fisher Hand Line Relationship Specialty Start Date End Date Any Diego FNP [address] [place] [address] PCP - General Family Medicine 02/18/25 documented as of this encounter
--- OUTSIDE RECORDS SUMMARY | 2025-03-24 18:51 | XMS_ITS | Clinical Summary ---
Author Organization [employer] Address [address] [place] [address] 7t [place] [address] Care Team Providers Care Braided Band Assembler Name Role Phone Any Diego YEIMI Primary Care Provider [phone] Allergies Active Allergy Reactions Criticality Noted Date Comments Cinnamon 01/25/2023 Penicillin G 03/17/2023 Penicillin V 01/25/2023 Medications amLODIPine (Norvasc) 10 MG tablet Take 1 tablet by mouth. 3 Active lisinopril 20 MG tablet Take 20 mg by mouth in the morning. 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 Probability of alcoholic liver disease is 100% Tobacco use disorder 01/02/2023 Essential hypertension 06/15/2007 Encounters Date Type Department Care Team Description 03/21/2025 3:00 PM EDT Office Visit [facility] [address] [place] [address] Michele Yang MD Alcohol use disorder (Primary Dx) 03/21/2025 Travel 03/20/2025 Travel 03/07/2025 Telephone [facility] [address] [place] [address] Michele Yang MD 03/06/2025 Travel 02/28/[address] [address] Tamia Rinaldi LPN 02/26/2025 2:30 PM EDT Office Visit [facility] [address] [place] [address] Rubens Macario DMD Partial edentulism, unspecified edentulism class (Primary Dx) 02/24/2025 3:00 PM EDT Telemedicine [facility] [address] [place] [address] Michele Yang MD Alcohol use disorder (Primary Dx) 02/24/2025 Telephone [facility] [address] [place] [address] Michele Yang MD 02/24/2025 Travel 02/19/2025 Travel 02/17/2025 Telephone [facility] [address] [place] [address] Rubens Macario DMD 02/17/2025 Travel 02/14/2025 Telephone [facility] [address] [place] [phone] Michele Yang MD 02/14/2025 Results Follow-Up [facility] [address] [place] [phone] Michele Yang MD Hepatic Function Panel, Hepatitis C Antibody with Reflex to HCV, RNA, Quantitative, Real-Time PCR, HIV-1/2 Antigen and Antibodies, Fourth Generation, with Reflexes, Additional followed-up results: 3 02/13/2025 1:00 PM EDT Office Visit [facility] [address] [place] [phone] Any Diego FNP Adult wellness visit (Primary Dx); Essential hypertension; Alcohol use; Hematuria, microscopic; Alcohol induced liver disorder (CMS/HCC); Proteinuria, unspecified type; Tobacco use disorder; Tremor of both outstretched hands 02/13/2025 Travel 02/10/2025 3:00 PM EDT Office Visit [facility] [address] [place] [address] Rubens Macario DMD Partial edentulism, unspecified edentulism class (Primary Dx) 02/10/2025 2:00 PM EDT Office Visit [facility] [address] [place] [address] Michele Yang MD Alcohol use disorder (Primary Dx); Tobacco dependence 02/10/2025 Travel 02/06/2025 Patient Outreach [facility] [address] [place] [address] Any Diego FNP Pre-visit Planning ([facility] unable to reach [facility]) 02/06/2025 Travel 02/04/2025 Travel 01/16/2025 1:00 PM EDT Office Visit [facility] [address] [place] [address] Rubens Macario DMD Severe dental caries (Primary Dx); [...] is your housing situation today? I have harrymarzena manzo 02/13/[address] you [...] 20 03/21/2025 3:36 PM EDT Oxygen Saturation 98% 02/13/2025 1:03 [...] 3:00 PM EST Office Visit [facility] [address] [place] [address] Michele Yang MD [address] [place] [address] 07/22/2025 1:30 PM EST Office Visit [facility] [address] [place] [address] Jaci Childress, OD [address] [place] [address] Health Maintenance Due Date Last Done Comments CT Colonography 1971 Colonoscopy 1971 Colorectal Cancer Screening 1971 FIT DNA/Cologuard 1971 FIT 1971 FOBT 1971 Lipid Panel 1971 Sigmoidoscopy 1971 Hepatitis A Vaccines (1 of 2 - Risk 2-dose series) 08/09/1990 Hepatitis B Vaccines (1 of 3 - 19+ 3-dose series) 08/09/1990 COVID-19 Vaccine ( - 2024-2 6 season) 2025 05/19/2021, 10/17/2020, 09/19/2020 Influenza [...] 07/27 (Patient Refused) SDOH Screening 02/13/2026 02/13/2025 Zoster Vaccines (1 of 2) 02/13/2026 Pos tponed from 08/09/2021 (Patient Refused) Tobacco Screening 02/26/2026 02/26/2025 Dental X-Ray: Full Mouth 03/18/2026 03/17/2023 RSV Patients and Patients Aged 60 years or older (1 - 1-dose 75+ series) 08/09/2046 HIV Screening Completed 02/13/2025 Hepatitis C Screening Completed 02/13/2025 HIB Vaccines Aged Out No longer eligi [...] Procedure Name Priority Date/Time Associated Diagnosis Comments BITE REGISTRATION Routine 02/26/2025 2:3 0 PM EDT Partial edentulism, unspecified edentulism class PSA, TOTAL Routine 02/13/2025 2:07 PM EDT Adult wellness visit CBC WITH AUTO DIFFERENTIAL Routine 02/13/2025 2:07 PM EDT Alcohol use disorder T-SPOT(R).TB Routine 02/13/2025 2:07 PM EDT Alcohol use disorder SYPHILIS SCREEN Routine 02/13/2025 2:07 PM EDT Alcohol use disorder HIV 1/2 ANTIGEN/ANTIBODY, FOURTH GENERATION W/RFL Routine 02/13/2025 2:07 PM EDT Alcohol use disorder HEPATITIS C AB W/REFL TO HCV RNA, QN, PCR Routine 02/13/2025 2:07 PM EDT Alcohol use disorder HEPATIC FUNCTION PANEL Routine 02/13/2025 2:07 PM EDT Alcohol use disorder POCT URINALYSIS DIPSTICK Routine 02/13/2025 1:56 PM EDT Adult wellness visit CHLAMYDIA/TRICHOMONAS /NEISSERIA GONORRHOEAE, PCR, URINE Routine 02/13/2025 1:51 PM EDT Adult wellness visit DENTURE IMPRESSION [...] Recently Relevant to Health Maintenance Results * Syphilis Screen (02/13/2025 2:07 PM EDT) Pathologist [facility] Syphilis Screen Nonreactive Nonreactive [facility] Blood 02/13/2025 2:07 PM EDT 02/13/2025 4:46 PM EDT us Michele Yang MD LAB BLOOD ORDERABLES Final Resul t [facility] [address] [place] [phone] * T-SPOT??.TB (02/13/2025 2:07 PM EDT) Pathologist [facility] T Spot TB Negative Negative [facility] Comment:A negative test resu lt does not exclude the possibilityof exposure to or infection with Mycobacteriumtuberculosis (M. tuberculosis). Patients with recentexposure to TB infected individuals exhibiting anegative T-SPOT.TB result should be considered forretesting within 6 weeks or if other relevant clinicalsymptoms indicate. Results from T-SPOT.TB testing mustbe used in conjunction with each individual'sepidemiological history, current medical status,and results of other diagnostic evaluations.The T-SPOT.TB test is qualitative and results arereported as positive, borderline, or negative, giventhat the test controls perform as expected. In linewith the Centers for Disease Control and Prevention's2010 recommendation to report quantitative measurementsalongside the qualitative result, the laboratoryprovides spot counts for informational purposes only.The T-SPOT.TB test should not be interpreted as aquantitative test. TS PANEL A 0 [facility] TS PANEL B 0 [facility] Negative Control Passed [facility] Positive Control Passed [facility] Comment:For additional infor clevejewels, please refer tohttp://education.HealthLinkNow/faq/GMO186(This link is being provided for informational/educational purposes only.)THIS TEST WAS PERFORMED AT:[employer] [id number] [place] [phone] NGUYEN MD,PHD 02/13/2025 2:07 PM EDT 02/13/2025 4:03 PM EDT us Michele Yang MD LAB BLOOD ORDERABLES Final Resul t [facility] [address] [place] [phone] * (ABNORMAL) CBC auto differential (02/13/2025 2:07 PM EDT) White Blood Count 12.3(H) 4.8 - 10.8 X10*3/uL [facility] Red Blood Count 4.38(L) 4.60 - 5.80 X10*6/uL [facility] Hemoglobin 16.3 14.0 - 18.0 g/dl [facility] Hematocrit 44.3 42.0 - 52.0 % [facility] Mean Corpuscular Volume 101.1(H) 80.0 - 98.0 fL [facility] Mean Corpuscular Hemoglobin 37.2(H) 27.0 - 33.0 pg [facility] Mean Corpuscular HGB Conc 36.8(H) 31.0 - 36.0 g/dl [facility] Red Cell Distribution Width 13.4 11.0 - 16.0 % [facility] Platelet Count 183 160 - 400 X10*3/uL [facility] Mean Platelet Volume 10.3 9.4 - 12.4 fL [facility] Neutrophils Percent Auto 60.0 45 - 73 % [facility] Imm Gran Pct Auto 0.5(H) 0.0 - 0.4 % [facility] Lymphocytes Percent Auto 31.6 20 - 40 % [facility] Monocytes Percent Auto 6.7 2 - 11 % [facility] Eosinophils Percent Auto 0.6 0 - 4 % [facility] Basophils Percent Auto 0.6 0 - 2 % [facility] NRBC Pct Auto 0.0 0.0 - 0.2 /100WBC [facility] Neutrophils Absolute Auto 7.4 2.0 - 8.3 x10*3/uL [facility] Imm Gran Abs Auto 0.06(H) 0.00 - 0.03 X10*3/uL [facility] Lymphocytes Absolute Auto 3.9 1.2 - 4.9 X10*3/uL [facility] Monocytes Absolute Auto 0.8 0.1 - 1.2 X10*3/uL [facility] Eosinophils Absolute Auto 0.1 0.0 - 0.4 X10*3/uL [facility] Basophils Absolute Auto 0.1 0.0 - 0.2 X10*3/uL [facility] NRBC Abs Auto 0.000 0.0 - 0.012 X10*3/uL [facility] Blood Venous blood specimen / Unknown 02/13/2025 2:07 PM EDT 02/13/2025 4:03 PM EDT us Michele Yang MD LAB BLOOD ORDERABLES Final Resul t [facility] [address] [place] [phone] * Hepatitis C Antibody with Reflex to HCV, RNA, Quantitative, Real-Time PCR (02/13/2025 2:07 PM EDT) Hepatitis C Antibody Nonreactive Nonreactive [facility] Comment:Antibodies to HCV no t detected; does not exclude early acuteHCV infection. Blood Venous blood specimen / Unknown 02/13/2025 2:07 PM EDT 02/13/2025 4:46 PM EDT Michele Yang MD LAB BLOOD ORDERABLES Final Resul t Performing Organization Address [facility] Co de Phone Number [facility] [address] [place] [phone] [phone] * HIV-1/2 Antigen and Antibodies, Fourth Generation, with Reflexes (02/13/2025 2:07 PM EDT) HIV AB/AG Nonreactive Nonreactive [facility] Comment:HIV-1 p24 Ag and/or HIV-1/HIV-2 Ab not detected.A test result that is nonreactive does not exclude thepossibility of exposure to or infection with HIV-1 and/orHIV-2. Nonreactive results in this assay for individualswith prior exposure to HIV-1 and/or HIV-2 may be due toantigen and antibody levels that are below the limit ofdetection of this assay.The [employer] HIV Ag/Ab Combo assay result andsupplemental assay results should be interpreted inconjunction with the patient's clinical presentation,history and other laboratory results. If the results areinconsistent with clinical evidence, additional testing issuggested to confirm the result. Blood Venous blood specimen / Unknown 02/13/2025 2:07 PM EDT 02/13/2025 4:46 PM EDT Michele Yang MD LAB BLOOD ORDERABLES Final Resul t Performing Organization Address [facility]/ZIP Co de Phone Number [facility] [address] [place] [phone] [phone] * PSA,Total (02/13/2025 2:07 PM EDT) Prostate Specific Antigen 1.14 <0.05 - 4.0 ng/mL [facility] Comment:PSA methodology: Abb carlo Alinity i ChemiluminescentMicroparticle Immunoassay (CMIA) Blood Venous blood specimen / Unknown 02/13/2025 2:07 PM EDT 02/13/2025 4:46 PM EDT us Anykaitlin Diego AGILE SCRUM COACH LAB BLOOD ORDERABLES Final Res ult Performing Organization Address [facility] Co de Phone Number [facility] [address] [place] [address] [phone] * (ABNORMAL) Hepatic Function Panel (02/13/2025 2:07 PM EDT) Bilirubin, Total 1.1(H) 0.0 - 1.0 mg/dL [facility] Bilirubin, Direct 0.4 0.0 - 0.5 mg/dL [facility] Aspartate Amino Transferase 91(H) 5 - 37 U/L [facility] Alanine Aminotransferase 53(H) 0 - 40 U/L [facility] Total Protein 8.4(H) 6.5 - 8.0 g/dL [facility] Albumin Level 4.7 3.5 - 5.0 g/dL [facility] Alkaline Phosphatase 96 39 - 117 U/L [facility] Blood Venous blood specimen / Unknown 02/13/2025 2:07 PM EDT 02/13/2025 4:46 PM EDT us Michele Yang MD LAB BLOOD ORDERABLES Final Resul t Performing Organization Address [facility] Co de Phone Number [facility] [address] [place] [phone] * POCT Urinalysis (02/13/2025 1:56 PM EDT) [...] Media Lot # [id number] Lot# Expiration Date [id number] Urine 02/13/2025 1:56 PM EDT Any Johnathon AGILE SCRUM COACH POINT OF CARE TEST ENTER/EDIT ORDERABLES Final Result * Chlamydia/N. Gonorrhoeae, PCR, Urine (02/13/2025 1:51 PM EDT) CT PCR, Urine NOT DETECTED Not Detect. [facility] Comment:A not detected test result does not exclude the possibilityof infection because test results can be affected byimproper specimen collection, concurrent antibiotic therapy,or the number of organisms in the specimen which may bebelow the sensitivity of the test. As with many diagnostictests, results from the Xpert CT/NG assay should beinterpreted in conjunction with other laboratory andclinical data available to the clinician.The Xpert CT/NG assay should not be used for the evaluationof suspected sexual abuse or for other medico-legalindications. Additional testing is recommended in anycircumstance when false positive or false negative resultscould lead to adverse medical, social or psychologicalconsequences. NG PCR, Urine NOT DETECTED Not Detect. [facility] Comment:A not detected test result does not exclude the possibilityof infection because test results can be affected byimproper specimen collection, concurrent antibiotic therapy,or the number of organisms in the specimen which may bebelow the sensitivity of the test. As with many diagnostictests, results from the Xpert CT/NG assay should beinterpreted in conjunction with other laboratory andclinical data available to the clinician.The Xpert CT/NG assay should not be used for the evaluationof suspected sexual abuse or for other medico-legalindications. Additional testing is recommended in anycircumstance when false positive or false negative resultscould lead to adverse medical, social or psychologicalconsequences. Urine (Urine, Random) 02/13/2025 1:51 PM EDT 02/13/2025 4:52 PM EDT Any Oksheri AGILE SCRUM COACH LAB URINE ORDERABLES Final Res ult [facility] [address] [place] [phone] * POCT STEPHANIE-14 Urine Drug Screen (02/10/2025 [...] Final Result from Last 3 Months Insurance [facility] Address: [facility] [id number] JAZIEL Son [id number] Care Teams Braided Band Assembler Relationship Specialty Start Date End Date Any Diego FNP [address] [place] [phone] PCP - General Family Medicine 02/18/25
--- OUTSIDE RECORDS SUMMARY | 2025-03-24 18:51 | XMS_ITS | Encounter Summary ---
Author Organization [employer] Address [address] [place] [address] 7 [place] [address] Care Team Providers Care Rolls Baker Name Role Phone Any Diego THERAPEUTIC RECREATION ASSISTANT Primary Care Provider Reason for Visit * Reason Onset Date Comments Med Refill 09/11/2024 Encounter Details Date Type Department Care Team (Late st Contact Info) Description 09/11/2024 Refill [facility] [address] [place] [address] Rubens Macario DMD [address] [place] [address] Social History Tobacco Use Types Packs/Day Years [...] Description 06/20/2025 3:00 PM EST Office Visit [facility] [address] [place] [address] Michele Yang MD [address] [place] [address] 07/22/2025 1:30 PM EST Office Visit [facility] [address] [place], [place] [phone] Jaci Childress, OD [address] [place], [place] [phone] documented as of this encounter Visit Diagnoses Not on filedocumented in this encounter Care Teams Rolls Baker Relationship Specialty Start Date End Date Any Diego FNP [address] [place], [place] [phone] PCP - General Family Medicine 02/18/25 documented as of this encounter
--- OUTSIDE RECORDS SUMMARY | 2025-03-24 18:51 | XMS_ITS | Encounter Summary ---
Author Organization [employer] Address [address] [place] [address] Care Team Providers Care Cork Slabs Sawyer Name Role Phone Any Diego DEPUTY K 9 Primary Care Provider [phone] Encounter Details Date Type Department Care Team (Latest Contact Info) Description 03/21/2025 Travel Social History Tobacco Use Types Packs/Day [...] 3:00 PM EST Office Visit [facility] [address] [place] [address] Michele Yang MD [address] [place] [address] 07/22/2025 1:30 PM EST Office Visit [facility] [address] [place] [address] Jaci Childress, OD [address] [place] [address] documented as of this encounter Visit Diagnoses Not on filedocumented in this encounter Additional Health Concerns Assessment Noted Time PHQ-9 Depression Total Score: 0 02/14/20 1:06 PM EDT documented as of this encounter Care Teams Cork Slabs Sawyer Relationship Specialty Start Date End Date Any Diego FNP [address] [place] [address] PCP - General Family Medicine 02/18/25 documented as of this encounter
== END 2025-03-24 16:18 | disposition home or self-care (01) ==
LOC: HO.HKA 15:50
PROVIDERS: PCP Nurse Practitioner Family; Visit Provider Internal Medicine Hypertension Specialist
DX: R80.9 Proteinuria, unspecified (principal); I10 Essential (primary) hypertension
CPT/HCPCS: 99204

== ENCOUNTER 2025-04-04 13:03 | Outpatient (REF) | payer BC, SELFPAY ==
--- OUTSIDE RECORDS SUMMARY | 2025-04-04 15:14 | XMS_ITS | Encounter Summary ---
Author Organization [employer] Address [address] [place] [address] Care Team Providers Care Applications Tester Name Role Phone Any Diego YEIMI Primary Care Provider [phone] Encounter Details Date Type Department Care Team ([facility] st Contact Info) Description 02/14/2025 Results Follow-Up [facility] [address] [place] [phone] Michele Yang MD [address] [place] [address] Hepatic Function Panel, Hepatitis C Antibody with [...] Description 06/20/2025 3:00 PM EST Office Visit [facility] [address] [place] [address] Michele Yang MD [address] [place] [address] 07/22/2025 1:30 PM EST Office Visit [facility] [address] [place] [address] Jaci Childress, OD [address] [place] [address] documented as of this encounter Visit Diagnoses Not on filedocumented in this encounter Additional Health Concerns Assessment Noted Time PHQ-9 Depression Total Score: 0 02/14/20 1:06 PM EDT documented as of this encounter Care Teams Applications Tester Relationship Specialty Start Date End Date Any Diego FNP [address] [place] [phone] PCP - General Family Medicine 02/18/25 documented as of this encounter
--- OUTSIDE RECORDS SUMMARY | 2025-04-04 15:14 | XMS_ITS | Encounter Summary ---
Author Organization [employer] Address [address] [place] [address] 7[address] [place] [address] Care Team Providers Care Senior Chemical Engineer Name Role Phone Any Diego DRAWER HARDWARE WORKER Primary Care Provider [phone] Reason for Visit * Reason Onset Date Comments Med Refill 09/11/2024 Encounter Details Date Type Department Care Team (Late st Contact Info) Description 09/11/2024 Refill [facility] [address] [place] [address] Rubens Macario DMD [address] [place] [address] Social History Tobacco Use Types Packs/Day Years [...] Description 06/20/2025 3:00 PM EST Office Visit [facility] [address] [place] [address] Michele Yang MD [address] [place] [address] 07/22/2025 1:30 PM EST Office Visit [facility] [address] [place], [place] [phone] Jaci Childress, OD [address] [place], [place] [phone] documented as of this encounter Visit Diagnoses Not on filedocumented in this encounter Care Teams Senior Chemical Engineer Relationship Specialty Start Date End Date Any Diego FNP [address] [place], [place] [phone] PCP - General Family Medicine 02/18/25 documented as of this encounter
--- OUTSIDE RECORDS SUMMARY | 2025-04-04 15:15 | XMS_ITS | Clinical Summary ---
Author Organization [employer] Address [address] [place] [address] [address] [place] [address] Care Team Providers Care Timber Grader Name Role Phone Any Diego YEIMI Primary Care Provider [phone] Allergies Active Allergy Reactions Criticality Noted Date [...] Description 03/21/2025 3:00 PM EDT Office Visit [facility] [address] [place] [phone] Michele Yang MD Alcohol use disorder (Primary Dx) 03/21/2025 Travel 03/20/2025 Travel 03/07/2025 Telephone [facility] [address] [place] [phone] Michele Yang MD 03/06/2025 Travel 02/28/[address] [phone] Tamia Rinaldi LPN 02/26/2025 2:30 PM EDT Office Visit [facility] [address] [place] [address] Rubens Macario DMD Partial edentulism, unspecified edentulism class (Primary Dx) 02/24/2025 3:00 PM EDT Telemedicine [facility] [address] [place] [address] Michele Yang MD Alcohol use disorder (Primary Dx) 02/24/2025 Telephone [facility] [address] [place] [phone] Michele Yang MD 02/24/2025 Travel 02/19/2025 Travel 02/17/2025 Telephone [facility] [address] [place] [address] Rubens Macario DMD 02/17/2025 Travel 02/14/2025 Telephone [facility] [address] [place] [phone] Michele Yang MD 02/14/2025 Results Follow-Up [facility] [address] [place] [phone] Michele Yang MD Hepatic Function Panel, Hepatitis C Antibody with Reflex to HCV, RNA, Quantitative, Real-Time PCR, HIV-1/2 Antigen and Antibodies, Fourth Generation, with Reflexes, Additional followed-up results: 3 02/13/2025 1:00 PM EDT Office Visit [facility] [address] [place] [phone] Any Diego FNP Adult wellness visit (Primary Dx); Essential hypertension; Alcohol use; Hematuria, microscopic; Alcohol induced liver disorder (CMS/HCC); Proteinuria, unspecified type; Tobacco use disorder; Tremor of both outstretched hands 02/13/2025 Travel 02/10/2025 3:00 PM EDT Office Visit [facility] [address] [place] [address] Rubens Macario DMD Partial edentulism, unspecified edentulism class (Primary Dx) 02/10/2025 2:00 PM EDT Office Visit [facility] [address] [place] [address] Michele Yang MD Alcohol use disorder (Primary Dx); Tobacco dependence 02/10/2025 Travel 02/06/2025 Patient Outreach [facility] [address] [place] [address] Any Diego FNP Pre-visit Planning ([facility] unable to reach [facility]) 02/06/2025 Travel 02/04/2025 Travel 01/16/2025 1:00 PM EDT Office Visit [facility] [address] [place] [address] Rubens Macario DMD Severe dental caries (Primary [...] Description 06/20/2025 3:00 PM EST Office Visit [facility] [address] [place] [address] Michele Yang MD [address] [place] [address] 07/22/2025 1:30 PM EST Office Visit [facility] [address] [place] [address] Jaci Childress, OD [address] [place] [address] Health Maintenance Due Date Last Done Comments [...] Syphilis Screen (02/13/2025 2:07 PM EDT) Pathologist [facility] Syphilis Screen Nonreactive Nonreactive [facility] Blood 02/13/2025 2:07 PM EDT 02/13/2025 4:46 PM EDT us Michele Yang MD LAB BLOOD ORDERABLES Final Resul t [facility] [address] [place] [phone] * T-SPOT??.TB (02/13/2025 2:07 PM EDT) Pathologist [facility] T Spot TB Negative Negative [facility] Comment:A negative test resu lt does [...] as aquantitative test. TS PANEL A 0 [facility] TS PANEL B 0 [facility] Negative Control Passed [facility] Positive Control Passed [facility] Comment:For additional infor clevejewels, please refer [email or web address]/[email or web address](This link is being provided for informational/educational purposes only.)THIS TEST WAS PERFORMED AT:[employer] [id number] [place] [id number] NGUYEN MD,PHD 02/13/2025 2:07 PM EDT 02/13/2025 4:03 PM EDT us Michele Yang MD LAB BLOOD ORDERABLES Final Resul t [facility] [address] [place] [phone] * (ABNORMAL) CBC auto differential (02/13/2025 2:07 PM EDT) White Blood Count 12.3(H) 4.8 - 10.8 X10*3/uL [facility] Red Blood Count 4.38(L) 4.60 - 5.80 X10*6/uL [facility] Hemoglobin 16.3 14.0 - 18.0 g/dl [facility] Hematocrit 44.3 42.0 - 52.0 % [facility] Mean Corpuscular Volume 101.1(H) 80.0 - 98.0 fL [facility] Mean Corpuscular Hemoglobin 37.2(H) 27.0 - 33.0 pg [facility] Mean Corpuscular HGB Conc 36.8(H) 31.0 - 36.0 g/dl [facility] Red Cell Distribution Width 13.4 11.0 - 16.0 % [facility] Platelet Count 183 160 - 400 X10*3/uL [facility] Mean Platelet Volume 10.3 9.4 - 12.4 fL [facility] Neutrophils Percent Auto 60.0 45 - 73 % [facility] Imm Gran Pct Auto 0.5(H) 0.0 - 0.4 % [facility] Lymphocytes Percent Auto 31.6 20 - 40 % [facility] Monocytes Percent Auto 6.7 2 - 11 % [facility] Eosinophils Percent Auto 0.6 0 - 4 % [facility] Basophils Percent Auto 0.6 0 - 2 % [facility] NRBC Pct Auto 0.0 0.0 - 0.2 /100WBC [facility] Neutrophils Absolute Auto 7.4 2.0 - 8.3 x10*3/uL [facility] Imm Gran Abs Auto 0.06(H) 0.00 - 0.03 X10*3/uL [facility] Lymphocytes Absolute Auto 3.9 1.2 - 4.9 X10*3/uL [facility] Monocytes Absolute Auto 0.8 0.1 - 1.2 X10*3/uL [facility] Eosinophils Absolute Auto 0.1 0.0 - 0.4 X10*3/uL [facility] Basophils Absolute Auto 0.1 0.0 - 0.2 X10*3/uL [facility] NRBC Abs Auto 0.000 0.0 - 0.012 X10*3/uL [facility] Blood Venous blood specimen / Unknown 02/13/2025 2:07 PM EDT 02/13/2025 4:03 PM EDT us Michele Yang MD LAB BLOOD ORDERABLES Final Resul t [facility] [address] [place] [address] [phone] * Hepatitis C Antibody with Reflex to HCV, RNA, Quantitative, Real-Time PCR (02/13/2025 2:07 PM EDT) Hepatitis C Antibody Nonreactive Nonreactive [facility] Comment:Antibodies to HCV no t detected; does not exclude early acuteHCV infection. Blood Venous blood specimen / Unknown 02/13/2025 2:07 PM EDT 02/13/2025 4:46 PM EDT Michele Yang MD LAB BLOOD ORDERABLES Final Resul t Performing Organization Address [facility] Co de Phone Number [facility] [address] [place] [address] [phone] * HIV-1/2 Antigen and Antibodies, Fourth Generation, with Reflexes (02/13/2025 2:07 PM EDT) HIV AB/AG Nonreactive Nonreactive [facility] Comment:HIV-1 p24 Ag and/or HIV-1/HIV-2 Ab not detected.A test result that is nonreactive does not exclude thepossibility of exposure to or infection with HIV-1 and/orHIV-2. Nonreactive results in this assay for individualswith prior exposure to HIV-1 and/or HIV-2 may be due toantigen and antibody levels that are below the limit ofdetection of this assay.The [employer] HIV Ag/Ab Combo assay result andsupplemental assay results should be interpreted inconjunction with the patient's clinical presentation,history and other laboratory results. If the results areinconsistent with clinical evidence, additional testing issuggested to confirm the result. Blood Venous blood specimen / Unknown 02/13/2025 2:07 PM EDT 02/13/2025 4:46 PM EDT Michele Ynag MD LAB BLOOD ORDERABLES Final Resul t Performing Organization Address [facility]/ZIP Co de Phone Number [facility] [address] [place] [address] [phone] * PSA,Total (02/13/2025 2:07 PM EDT) Prostate Specific Antigen 1.14 <0.05 - 4.0 ng/mL [facility] Comment:PSA methodology: Abb carlo Alinity i ChemiluminescentMicroparticle Immunoassay (CMIA) Blood Venous blood specimen / Unknown 02/13/2025 2:07 PM EDT 02/13/2025 4:46 PM EDT us Anykaitlin Diego PROPERTIES SUPERVISOR LAB BLOOD ORDERABLES Final Res ult Performing Organization Address [facility] Co de Phone Number [facility] [address] [place] [address] [phone] * (ABNORMAL) Hepatic Function Panel (02/13/2025 2:07 PM EDT) Bilirubin, Total 1.1(H) 0.0 - 1.0 mg/dL [facility] Bilirubin, Direct 0.4 0.0 - 0.5 mg/dL [facility] Aspartate Amino Transferase 91(H) 5 - 37 U/L [facility] Alanine Aminotransferase 53(H) 0 - 40 U/L [facility] Total Protein 8.4(H) 6.5 - 8.0 g/dL [facility] Albumin Level 4.7 3.5 - 5.0 g/dL [facility] Alkaline Phosphatase 96 39 - 117 U/L [facility] Blood Venous blood specimen / Unknown 02/13/2025 2:07 PM EDT 02/13/2025 4:46 PM EDT us Michele Yang MD LAB BLOOD ORDERABLES Final Resul t Performing Organization Address [facility] Co de Phone Number [facility] [address] [place] [phone] * POCT Urinalysis (02/13/2025 1:56 PM [...] Media Lot # [id number] Lot# Expiration Date [id number] Urine 02/13/2025 1:56 PM EDT Any Johnathon PROPERTIES SUPERVISOR POINT OF CARE TEST ENTER/EDIT ORDERABLES Final Result * Chlamydia/N. Gonorrhoeae, PCR, Urine (02/13/2025 1:51 PM EDT) CT PCR, Urine NOT DETECTED Not Detect. [facility] Comment:A not detected test result does [...] NG PCR, Urine NOT DETECTED Not Detect. [facility] Comment:A not detected test result does [...] EDT 02/13/2025 4:52 PM EDT Any Oksheri PROPERTIES SUPERVISOR LAB URINE ORDERABLES Final Res ult [facility] [address] [place] [phone] [phone] * POCT STEPHANIE-14 Urine Drug Screen [...] Final Result from Last 3 Months Insurance [facility] P[facility] D[facility] - [facility] P[facility] Care Teams Timber Grader Relationship Specialty Start Date End Date Any Diego FNP [address] [place] [phone] PCP - General Family Medicine 02/18/25
[2025-04-04 16:43] LABS: Alanine Aminotransferase 56 U/L (0-40); Albumin Level 4.5 g/dL (3.5-5.0); Alkaline Phosphatase 97 U/L (39-117); Anion Gap 14 (12-20); Aspartate Amino Transferase 89 U/L (5-37); Blood Urea Nitrogen 11 mg/dL (9-16); Calcium 9.0 mg/dL (8.4-10.2); Carbon Dioxide 25 mmol/L (22-29); Chloride 104 mmol/L (96-108); Estimated Glomerular Filt Rate > 60; Magnesium 1.8 mg/dL (1.6-2.6); Potassium 3.2 mmol/L (3.3-5.1); Sodium 140 mmol/L (135-145); Total Protein 8.0 g/dL (6.5-8.0)
[2025-04-04 16:47] LABS: Total Protein Urine Random 13 mg/dL (<12)
[2025-04-04 17:05] LABS: Appearance Urine Clear; Glucose Urine UA Negative (Negative); PH 5.5 (5.0-9.0); Specific Gravity - Urine 1.025 (1.005-1.025); UMIC TRIGGER UA YES
[2025-04-06 04:06] LABS: HBS Num1 179.77 mIU/mL (0-7.99); HBc Num1 0.07 S/CO (0.00-0.79); HBsAGNum1 0.45 S/CO (0.00-0.99); Hepatitis B Surface Antigen Negative (Negative); ~Hepatitis B Surface Antibody REACTIVE (Nonreactive)
== END 2025-04-04 13:04 | disposition home or self-care (01) ==
LOC: HO.HMGCLDS 13:03
PROVIDERS: Visit Provider Internal Medicine Hypertension Specialist
DX: I10 Essential (primary) hypertension (principal); R80.9 Proteinuria, unspecified; Z11.59 Encounter for screening for other viral diseases; Z13.21 Encounter for screening for nutritional disorder
CPT/HCPCS: 36415; 80053; 81001; 81003; 82306; 82570; 83735; 84156; 86704; 86706; 87340

== ENCOUNTER 2025-04-14 09:58 | Outpatient (REF) | payer BC, SELFPAY ==
--- NOTE | ~2025-04-14 | US_ITS ---
CLINICAL HISTORY: Elevated liver enzymes US abdomen complete Comparison: None Provided Findings: Gallbladder normal without stones or wall thickening. Common duct measures 4.0 mm. No sonographic Back sign. Fatty infiltration of the liver with 1 cm left cyst. Right lobe measures 16.3 cm in length. Main portal vein patent with normal direction of flow. Pancreas is unremarkable. Aorta and IVC patent and normal in caliber. The right kidney is normal, 12.7 cm in length. No focal abnormality or hydronephrosis. The left kidney is normal, 10.1 cm in length. No focal abnormality or hydronephrosis. The spleen is normal, 9.4 cm in length. No focal abnormality. Impression: Fatty infiltration of the liver Otherwise unremarkable This document has been electronically signed by: Chandrakant Frost MD on 04/14/2025 20:18:58
== END 2025-04-14 09:59 | disposition home or self-care (01) ==
LOC: HO.US 09:58
PROVIDERS: Visit Provider Family Medicine
DX: R74.8 Abnormal levels of other serum enzymes (principal)
CPT/HCPCS: 76700

== ENCOUNTER → 2025-04-14 10:02 | Outpatient (BNV) | payer BC, SELFPAY | PROVIDERS: Visit Provider Radiology Diagnostic Radiology | DX: K76.0 Fatty (change of) liver, not elsewhere classified (principal) | CPT/HCPCS: 76700 ==